=== PATIENT | female | born 1975 | race African-American/Black ===

== ENCOUNTER 2022-06-02 08:37 | Emergency (ER) | payer BC ==
[~2022-06-02] VITALS: Ht 162.6 cm; Wt 46.4 kg
[2022-06-02 08:43] VITALS: TEMP 98.7
[2022-06-02 10:33] LABS: BASO % 0.3 % (0.0-2.0); EOS % 0.2 % (0.0-4.0); GRAN # 7.5 K/mm3 (1.4-6.5); GRAN % 84.1 % (42.2-75.2); HEMOGLOBIN 12.4 g/dl (12.5-16.0); LYMPH # 0.9 K/mm3 (1.2-3.4); LYMPH % 10.1 % (20.0-51.0); MEAN CELL VOLUME 86 fl (80.0-100.0); MEAN CORPUSCULAR HEMOGLOBIN 29 pg (27-31); MEAN CORPUSCULAR HGB CONC 34 g/dl (33.0-37.0); MEAN PLATELET VOLUME 9.4 fl (7.4-10.4); MONO # 0.4 K/mm3 (0.1-0.6); MONO % 4.9 % (1.7-9.3); PLATELET COUNT 255 K/mm3 (130-400); RED BLOOD COUNT 4.23 M/mm3 (4.10-5.30); REDCELL DISTRIBUTION WIDTH-CV 12.8 % (11.5-14.5)
[2022-06-02 10:34] LABS: HEMATOCRIT 36.4 % (37.0-47.0)
[2022-06-02 10:47] LABS: ALANINE AMINOTRANSFERASE 13 U/L (0-55); ALBUMIN 3.6 gm/dL (3.5-5.0); ALKALINE PHOSPHATASE 61 U/L (40-150); ANION GAP 13 mmol/L (7-16); AST,SGOT 15 U/L (5-34); BILIRUBIN,TOTAL 0.8 mg/dL (0.2-1.2); BLOOD UREA NITROGEN 14 mg/dL (7-19); CALCIUM 9.2 mg/dL (8.4-10.2); CARBON DIOXIDE 21 mmol/L (22-29); CHLORIDE 105 mmol/L (98-107); GLUCOSE 95 mg/dL (70-99); POTASSIUM 3.6 mmol/L (3.5-4.5); SODIUM 139 mmol/L (136-145); TOTAL PROTEIN 7.2 gm/dL (6.2-8.1)
[2022-06-02 11:07] LABS: THYROID STIMULATING HORMONE 2.129 uIU/mL (0.350-4.940); TROPONIN-I < 0.010 ng/mL (0.00-0.033)
[2022-06-02 12:17] VITALS: BP 106/62; PULSE 71
== END 2022-06-02 12:18 | disposition home or self-care (01) ==
LOC: COL.ER 08:37
PROVIDERS: Emergency Medicine
DX: R00.2 Palpitations (principal); R00.0 Tachycardia, unspecified; Z86.16 Personal history of COVID-19
CPT/HCPCS: J7120